=== PATIENT | male | born 2005 | race Caucasian/White ===

== ENCOUNTER 2023-09-12 12:44 | Emergency (ER) | payer OTHER ==
[~2023-09-12] VITALS: Ht 162.6 cm; Wt 80.9 kg
[2023-09-12 12:50] VITALS: BP 125/66; PULSE 70; RESP 18; TEMP 96.8; O2SAT 98
[2023-09-12] MEDS ORDERED: CYCL-1 PO (14:38)
[2023-09-12] MEDS ORDERED: LIDO700A32 TOP (14:38)
== END 2023-09-12 14:55 | disposition home or self-care (01) ==
LOC: ER 12:45
DX: S16.1XXA Strain of muscle, fascia and tendon at neck level, initial encounter (principal); V89.2XXA Person injured in unspecified motor-vehicle accident, traffic, initial encounter; Y93.89 Activity, other specified; Y92.89 Other specified places as the place of occurrence of the external cause; Y99.8 Other external cause status
CPT/HCPCS: 72040; 99283